=== PATIENT | female | born 1990 | race African-American/Black ===

== ENCOUNTER 2018-02-14 15:03 | Emergency (ER) | payer OTHER ==
[~2018-02-14] VITALS: Ht 167.6 cm; Wt 99.2 kg
[~2018-02-14 15:03] MED LIST: ADVIL200 MG PO; IBUPROFEN800 MG PO; PRENATAL TABLE1 EAC3 PO
[2018-02-14 17:00] LABS: APPEARANCE CLOUDY ((CLEAR)); BILIRUBIN NEGATIVE; BLOOD NEGATIVE; COLOR YELLOW ((YELLOW)); GLUCOSE (STRIP) NEGATIVE; KETONES 80; LEUKOCYTES LARGE; NITRITE NEGATIVE; PROTEIN (STRIP) NEGATIVE; SPECIFIC GRAVITY 1.026 (1.000-1.030)
[2018-02-14 17:08] LABS: BACTERIA RARE /HPF; EPITHELIAL CELLS 3+ /HPF; HYALINE CASTS 0-5 /LPF; MUCUS TRACE /LPF; UCUL ADDED? YES; WHITE BLOOD CELLS 40-50 /HPF (0-5)
[2018-02-14 17:13] LABS: HEMATOCRIT 37.1 % (36.0-46.0); HEMOGLOBIN 12.4 G/DL (11.9-15.5); MCH 29.5 PG (29.0-34.0); MCHC 33.4 G/DL (30.0-36.0); MCV 88.3 FL (83-99); PLATELET COUNT 214 K/uL (156-360); RBC DIS.WIDTH-CV 12.2 % (11.8-14.6); RBC DIS.WIDTH-SD 39.4 % (39-53); WHITE BLOOD COUNT 11.6 K/uL (4.1-10.2)
[2018-02-14 17:22] LABS: CHLORIDE 105 mEq/L (99-109); POTASSIUM 3.6 mEq/L (3.7-5.4); SODIUM 136 mEq/L (136-147)
[2018-02-14 17:24] LABS: GLUCOSE 73 mg/dL (70-99); TOTAL PROTEIN 7.9 g/dL (6.4-8.3)
[2018-02-14 17:26] LABS: TOTAL BILIRUBIN 0.7 mg/dL (0.0-1.0)
[2018-02-14 17:27] LABS: ALKALINE PHOSPHATASE 48 IU/L (3-129); CREATININE 0.7 mg/dL (0.6-1.3); GFR ESTIMATE (CALCULATED) > 59 mL/min/
[2018-02-14 17:29] LABS: AST (GOT) 13 IU/L (2-34); UREA NITROGEN (BUN) 14 mg/dL (9-23)
[2018-02-14 17:30] LABS: ALT (GPT) 11 IU/L (3-49)
[2018-02-14 17:36] LABS: QUANTITATIVE HCG < 4.0 MIU/ML
[2018-02-14 19:08] LABS: LIPASE 23 U/L (1.0-51.0)
[2018-02-14] MEDS ORDERED: CIPRO500 MG PO (21:20)
[2018-02-14] MEDS ORDERED: NORCO 5/3251 TABLET PO (21:20)
[2018-02-14] MEDS ORDERED: FLAGYL500 MG PO (21:20)
[2018-02-14] MEDS ORDERED: ZOFRAN ODT4 MG PO (21:20)
[2018-02-14 23:02] VITALS: BP 109/82
== END 2018-02-14 22:46 | disposition home or self-care (01) ==
LOC: EME 15:03
PROVIDERS: Physician Assistant Medical
DX: K57.30 Diverticulosis of large intestine without perforation or abscess without bleeding (principal); N39.0 Urinary tract infection, site not specified; N20.0 Calculus of kidney; K42.9 Umbilical hernia without obstruction or gangrene
CPT/HCPCS: 74177; 80053; 81003; 83605; 83690; 84702; 85027; 87040; 87086; 99281; 99284; J0744; J1885; J2405; J3010